=== PATIENT | female | born 1970 | race Caucasian/White ===

== ENCOUNTER 2017-09-23 07:14 | Day surgery (SDC) | payer OTHER ==
[~2017-09-23] VITALS: Ht 167.6 cm; Wt 83.0 kg
[~2017-09-23 07:14] MED LIST: ALBU6.7H INH; ALBU8I INH; LORT5TAB PO; PRED20 PO; SULF-154 PO
[2017-09-23 07:30] VITALS: BP 147/82; PULSE 70; RESP 20; TEMP 98.2; O2SAT 98
[2017-09-23] MEDS ORDERED: CHLORHEXIDINE GLUCONATE 2 % 1 PACK (2 CLOTHS) TOPICAL SCH (07:45)
[2017-09-23] MEDS ORDERED: POVIDONE IODINE 5% (ANTISEPSIS KIT) 4 APPLICATIONS EACH NARE SCH (07:45)
[2017-09-23] MEDS ORDERED: ceFAZolin 2 GM PREMIX 50 ML - implanted port/tunneled catheter insertion IV SCH (07:45)
[2017-09-23] MEDS ORDERED: VANCOMYCIN 1000 MG/NS 250 ML - implanted port/tunneled catheter IV SCH ×2 (07:45)
[2017-09-23] MEDS ORDERED: MUPIROCIN 2% OINT 1 APPLIC/GM SYR EACH NARE SCH (07:45)
[2017-09-23 07:55] LABS: AUTOMATED NEUTROPHIL # 6.8 TH/MM3 (1.8-7.7); BASOPHIL # 0.1 TH/MM3 (0-0.2); BASOPHIL % 1.2 % (0.0-2.0); EOSINOPHIL # 0.2 TH/MM3 (0-0.4); EOSINOPHIL % 2.2 % (0.0-4.0); HEMATOCRIT 40.9 % (35.0-46.0); HEMOGLOBIN 13.9 GM/DL (11.6-15.3); LYMPH % 16.5 % (9.0-44.0); LYMPHOCYTE # 1.5 TH/MM3 (1.0-4.8); MEAN CORPUSCULAR HEMOGLOBIN 30.6 PG (27.0-34.0); MEAN PLATELET VOLUME 7.8 FL (7.0-11.0); MONO % 7.2 % (0.0-8.0); MONOCYTE # 0.7 TH/MM3 (0-0.9); NEUT % 72.9 % (16.0-70.0); PLATELET COUNT 323 TH/MM3 (150-450); RED BLOOD COUNT 4.55 MIL/MM3 (4.00-5.30); RED CELL DISTRIBUTION WIDTH 12.6 % (11.6-17.2); WHITE BLOOD COUNT 9.3 TH/MM3 (4.0-11.0)
[2017-09-23] MEDS ORDERED: HYDROmorphone HCL PF 2 MG/ML VIAL ONE (07:58)
[2017-09-23 08:03] LABS: PROTHROMBIN TIME - PATIENT 9.8 SEC (9.8-11.6)
[2017-09-23] MEDS ORDERED: MORP1TAB25 PO (08:25)
[2017-09-23] MEDS ORDERED: ALBU6.7H INH (08:25)
[2017-09-23] MEDS ORDERED: IBUP-232 PO (08:25)
[2017-09-23] MEDS ORDERED: OXYC-395 PO (08:25)
[2017-09-23] MEDS ORDERED: MIDAZOLAM HCL 2 MG/2 ML VIAL ONE ×2 (09:13→09:36)
[2017-09-23] MEDS ORDERED: LIDOCAINE 1%/EPINEPHrine 1:100,000 SOLN 30 ML VIAL ONE (09:29)
--- NOTE | 2017-09-23 10:12 | PD.RAD ---
Post Procedure Progress Note Pre Procedure Diagnosis: (1) Anal cancer Post Procedure Diagnosis: (1) Anal cancer Procedure Date: Sep 23, 2017 Supervising Radiologist: Jigar Harris Estimated blood loss: 3cc Anesthesia: Local, Conscious Sedation Plan of Activity Patient to Unit: [facility] Patient Condition: Fair Additional Comments: Port placed via the right IJ catheter in good position OK for use. Full dictated report to follow See PACS Report for procedural detail/treatment Jigar Harris MD Sep 23, 2017 10:12
[2017-09-23 10:15] VITALS: BP 114/62; PULSE 82; RESP 18; TEMP 97.2; O2SAT 94
[2017-09-23] MEDS ORDERED: SODIUM CHLORIDE 0.9% FLUSH 10 ML FLUSH IVF PRN (10:15)
[2017-09-23 10:30] VITALS: BP 107/56; PULSE 58; RESP 20; O2SAT 98
[2017-09-23 11:00] VITALS: BP 91/44; PULSE 62; RESP 20; O2SAT 95
[2017-09-23 11:30] VITALS: BP 94/52; PULSE 82; RESP 20; O2SAT 98
--- NOTE | 2017-09-23 11:42 | RADRPT ---
EXAM DATE/TIME: 09/23/2017 10:49 [facility] COMPARISON: No previous studies available for comparison. INDICATIONS : Patient presents with anal cancer in need of port placement for treatment. MEDICAL HISTORY : Breast cancer Anal cancer Plapitations COPD SURGICAL HISTORY : L Breast lumpectomy ENCOUNTER: Initial ACUITY: 3 weeks PAIN SCORE: 6/10 LOCATION: Anus FLUORO TIME: 0.7 minutes IMAGE SERIES: 1 SEDATION TIME: 40 minutes ACCESS: Right internal jugular vein SEDATION: 1.) 4 mg midazolam (Versed) IV 2.) 200 mcg fentanyl (Sublimaze) IV Prophylactic antibiotics were administered with appropriate pre-procedure timing. Vancomycin within 2 hours of procedure, Ancef (or alternative) within 1 hour of procedure. DEVICE: 1. 8 [place] single lumen Bard Power Port PROCEDURE : 1. Continuous pulse oximetry and EKG monitoring. 2. Intravenous conscious sedation. 3. Ultrasound guidance for venous access. 4. Fluoroscopic guided implantable central venous port placement. The patient was placed supine. The neck was prepped in sterile fashion. Full sterile technique was u sed, including cap, mask, sterile gloves and gown, and a large sterile sheet. Hand hygiene and 2% ch lorhexidine Betadine was utilized per protocol for cutaneous antisepsis with appropriate dry time for site. Sterile gel and sterile probe cover were utilized for ultrasound guidance. The skin and sub cutaneous tissues were infiltrated with local anesthetic solution. Under direct ultrasound guidance, central venous access was accomplished in the targeted vessel. The ultrasound images depicting access guidance were stored and saved to PACS for permanent record. A s ubcutaneous pocket was created using blunt dissection. The port was introduced to the pocket. The c atheter tubing was fed through a subcutaneous tunnel to the venotomy site. The catheter tubing was c ut to a suitable length and then was introduced through a valved Peel-Away sheath and positioned with catheter tubing tip at the cavo-atrial junction level. The port was sewn to the chest wall. The pock et incision was closed with subcuticular Vicryl suture. Steri-Strips were applied. The port was flu shed and locked with heparin solution per protocol. Sterile dressing was applied to the site. The p atient tolerated the procedure well. Conscious sedation was performed with the prescribed dosages and duration as above in the presence of an independent trained radiology nurse to assist in the monitoring of the patient. EKG and oximetry remained stable throughout the procedure. The patient tolerated the procedure well and there were no complications. The patient was sent to post anesthesia recovery in stable condition. CONCLUSION: Uncomplicated ultrasound and fluoroscopic guided implanted central venous port catheter placement as described in detail above. An 8 Hungarian Power port was placed. Jigar Harris MD on September 23, 2017 at 11:37 Board Certified Radiologist. This report was verified electronically.
[2017-09-23 12:00] VITALS: BP 106/56; PULSE 80; RESP 20; O2SAT 96
== END 2017-09-23 12:05 | disposition home or self-care (01) ==
LOC: HROP 07:14 → HRIP 07:17 → HROP 12:05
PROVIDERS: ATTEND Internal Medicine Hematology & Oncology
DX: Z45.2 Encounter for adjustment and management of vascular access device (principal); C21.0 Malignant neoplasm of anus, unspecified; J44.9 Chronic obstructive pulmonary disease, unspecified
CPT/HCPCS: 36561; 76937; 77001; 85025; 85610; 85730; 99152; 99153; C1788; J0690; J1170; J1642; J2250; J3010; J3370; J7050